=== PATIENT | male | born 1970 | race Caucasian/White ===

== ENCOUNTER → 2021-01-24 | Outpatient (CLI) | payer OTHER | LOC: KOH-I 11:01 | DX: M54.2 Cervicalgia (principal); M51.9 Unspecified thoracic, thoracolumbar and lumbosacral intervertebral disc disorder; M54.50 Low back pain, unspecified; M47.812 Spondylosis without myelopathy or radiculopathy, cervical region; M47.814 Spondylosis without myelopathy or radiculopathy, thoracic region; M47.816 Spondylosis without myelopathy or radiculopathy, lumbar region | CPT/HCPCS: 72040; 72070; 72100 ==

== ENCOUNTER → 2021-01-31 | Outpatient (CLI) | payer OTHER | LOC: KOH-I 09:46 | DX: M25.522 Pain in left elbow (principal); M19.022 Primary osteoarthritis, left elbow | CPT/HCPCS: 73080 ==

== ENCOUNTER → 2021-05-22 | Outpatient (CLI) | payer OTHER | LOC: KOH-I 10:15 | DX: M25.561 Pain in right knee (principal); M54.50 Low back pain, unspecified; M17.11 Unilateral primary osteoarthritis, right knee; M51.36 Other intervertebral disc degeneration, lumbar region | CPT/HCPCS: 72100; 73562 ==

== ENCOUNTER → 2021-06-11 | Outpatient (CLI) | payer OTHER | LOC: KOH-I 13:09 | DX: M25.562 Pain in left knee (principal); S83.281A Other tear of lateral meniscus, current injury, right knee, initial encounter; M22.41 Chondromalacia patellae, right knee; M17.11 Unilateral primary osteoarthritis, right knee | CPT/HCPCS: 73721 ==